=== PATIENT | female | born 1990 | race Caucasian/White ===

== ENCOUNTER 2024-07-23 08:05 | Emergency (ER) | payer OTHER, SELFPAY ==
[2024-07-23 08:06] VITALS: BP 130/92; PULSE 86; RESP 16; TEMP 36.4; O2SAT 99; BMI 25.9
--- NOTE | 2024-07-23 08:19 | CT_ITS ---
EXAM: CT head without contrast, with sagittal and coronal reconstructed images, and CT of the facial bones without contrast, with sagittal and coronal reconstructed images (combined dictation). CLINICAL HISTORY: Trauma. COMPARISON: None. TECHNIQUE: CT head without contrast, with sagittal and coronal reconstructed images, and CT of the facial bones without contrast, with sagittal and coronal reconstructed images (combined dictation). FINDINGS: A fracture of the nasal bone is seen, with deviation to the right. No other fracture site is seen. No orbital pathology is noted. The paranasal sinuses appear clear, as do the mastoid air cells. No intracranial hemorrhage, mass, or mass effect is seen. No extra-axial fluid collection is noted. Ventricles appear symmetric and within the normal range. CT/Sinus/Facial Bone IMPRESSION: 1. Nasal bone fracture. 2. No intracranial abnormality is seen. Reading Location: [address]
--- NOTE | 2024-07-23 08:36 | CT_ITS ---
EXAM: CT head without contrast, with sagittal and coronal reconstructed images, and CT of the facial bones without contrast, with sagittal and coronal reconstructed images (combined dictation). CLINICAL HISTORY: Trauma. COMPARISON: None. TECHNIQUE: CT head without contrast, with sagittal and coronal reconstructed images, and CT of the facial bones without contrast, with sagittal and coronal reconstructed images (combined dictation). FINDINGS: A fracture of the nasal bone is seen, with deviation to the right. No other fracture site is seen. No orbital pathology is noted. The paranasal sinuses appear clear, as do the mastoid air cells. No intracranial hemorrhage, mass, or mass effect is seen. No extra-axial fluid collection is noted. Ventricles appear symmetric and within the normal range. CT/Brain/Head without Contrast IMPRESSION: 1. Nasal bone fracture. 2. No intracranial abnormality is seen. Reading Location: [id number]
--- NOTE | 2024-07-23 08:39 | EX.ED.GENINJ ---
HPI History of Present Illness Chief Complaint: Trauma Informant: patient Narrative Narrative: 33-year-old female states that last night she was struck in the nose left face by a baseball. No loss of consciousness. She notes she had a bloody nose which resolved. Other than swelling and pain she was doing okay went to urgent care who sent her to the emergency department for evaluation. Patient notes pain with medial deviation of the left eye. Otherwise no vision change. She states her upper teeth hurt. She denies any malocclusion. No neck pain. She notes a frontal headache as well as a slight right occipital headache. She does not take any blood thinners. PFSH PFS Medical History no medical history Home Medications ?Medication ?Instructions ?Recorded ?Last Taken ?Type vits,calcium no.78-iron 1 tab PO DAILY 12/11/16 12/11/16 05:30 History fumarate-folic acid 29 mg-1 mg tablet (Prenatabs FA) loratadine 10 mg tablet (Allergy 10 mg PO DAILY 12/25/16 12/25/16 06:00 History Relief (loratadine)) Allergy/AdvReac Type Severity Reaction Status Date / Time No Known Allergies Allergy Verified 06/30/15 21:02 Social History Smoking Status: Never smoker ROS ROS ED Constitutional Constitutional ED: Denies chills, fever(s) or weight loss Eyes Eyes: Reports other Details: See history of present illness ; Denies blurry vision, change in vision or diplopia ENT ENT ED: Reports other Details: See history of present illness ; Denies ear pain, rhinorrhea or sore throat Cardiovascular Cardiovascular: Denies chest pain, orthopnea, palpitations or racing heartbeat Respiratory/Chest Respiratory/Chest: Denies cough, dyspnea or orthopnea Gastrointestinal Gastrointestinal: Denies abdominal pain, diarrhea, nausea or vomiting Genitourinary Genitourinary ED: Denies dysuria, hematuria or urinary frequency Musculoskeletal Musculoskeletal: Denies arthralgias or myalgias Integumentary Denies abscess or rash Neurologic Neurologic: Denies headache(s) or weakness Psychiatric Psychiatric: Denies anxiety, depression, suicidal ideation or suicidal thoughts Endocrine Endocrinology: Denies polydipsia, polyphagia or polyuria Allergic/Immunologic Allergic/Immunologic ED: Denies mouth swelling, tongue swelling or urticaria EXAM Physical Exam Const Vital Signs: 07/23/24 08:06 07/23/24 08:11 Temperature 97.6 F L Temperature Source Temporal Pulse Rate 86 Respiratory Rate 16 Respiratory Effort Normal Non-Labored Respiratory Depth Normal Respiratory Pattern Normal Blood Pressure 130/92 H Blood Pressure Mean 104 Pulse Ox 99 Oxygen Delivery Method Room Air Room Air Positive well nourished and well developed General Appearance ED: well developed HEENT Reports normocephalic and moist mucous membranes HEENT Narrative: Patient has mild swelling and ecchymosis in the bilateral infraorbital region in the nasal region. There is no septal hematoma. Midface is stable but painful. There is no dental trauma or malocclusion. No subcutaneous emphysema. I do not appreciate hyphema or subconjunctival hemorrhage. Extraocular motions are intact but has painful medial movement of the left eye. No Alejandro sign or raccoon eyes noted. No palpable bony depression. Eyes PERRL and EOMs intact bilaterally Neck no lymphadenopathy, supple and no JVD Resp normal respiratory effort and clear to auscultation bilaterally Cardio regular rate, regular rhythm and no murmurs GI normal to inspection, nondistended, normoactive bowel sounds and non-tender Palpation: soft Back/Spine no CVA tenderness and normal ROM Extremity normal to inspection General Extremety ED: Negative for edema General Extremity: Negative for edema Neuro oriented x3 and CN's II-XII intact bilaterally Sensorium / Orientation: alert Motor Exam: strength 5/5 throughout Psych mental status grossly normal Mood & Affect: Negative for depressed or tearful Skin no rashes or lesions noted and no wounds MDM MDM MDM Narrative Medical decision making narrative: Differential diagnosis includes nasal fracture maxillary fracture orbital fracture midface fracture intracranial hemorrhage skull fracture concussion septal hematoma dental trauma mandible fracture retro-orbital hematoma orbital trauma CT the brain demonstrates no acute intracranial abnormality. CT of the facial bones demonstrates a nasal fracture with deviation to the right. Please see radiologist read I updated the patient with results. I recommend ice anti-inflammatories. She declines narcotic pain medication at this time. I will refer her to plastic surgery. Patient understands return instructions as well as follow-up History & Record Review Discussion w/independent historian: Patient Radiography Diagnostic Testing: Clinical Impression(s) from Imaging Studies Facial/Sinus 07/23/24 08:19 IMPRESSION: 1. Nasal bone fracture. 2. No intracranial abnormality is seen. Reading Location: [address] 07/23/24 08:36 IMPRESSION: 1. Nasal bone fracture. 2. No intracranial abnormality is seen. Reading Location: [address] Discharge Plan Triage Chief Complaint: Trauma ED Provider: Chao Almazan Dx/Rx/DC Orders Clinical Impression: Closed fracture nasal bone, Contusion of face Instructions: ED Nose Fracture, with X-Ray Prescriptions: No Action vit,[id number] [Prenatabs FA] 1 TABLET tablet 1 tab PO DAILY loratadine [Allergy Relief (loratadine)] 10 MG tablet 10 mg PO DAILY Primary Care Provider: Chuy Coyne Referrals: Jacob Valencia MD [Med Staff - Active Staff] - 1-2 Weeks Chuy Coyne MD [Primary Care Provider] - Print Language: Kenyan Disposition Disposition: Home, Self Care
== END 2024-07-23 09:29 | disposition home or self-care (01) ==
PROVIDERS: Emergency Provider Emergency Medicine; PCP Family Medicine; Visit Provider Emergency Medicine
DX: S02.2XXA Fracture of nasal bones, initial encounter for closed fracture (principal); W21.03XA Struck by baseball, initial encounter; Y93.64 Activity, baseball
CPT/HCPCS: 70450; 70486; 99282